=== PATIENT | female | born 2000 | race Caucasian/White ===

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

== ENCOUNTER → 2018-10-08 | Outpatient (REF) | payer OTHER ==
[2018-10-08 10:52] LABS: HEMATOCRIT 43.3 % (36.0-47.0); HEMOGLOBIN 14.7 g/dl (12.0-15.5); MEAN CORPUSCULAR HEMOGLOBIN 31.8 pg (27.0-33.0); MEAN CORPUSCULAR HGB CONC 33.9 g/dl (32.0-36.5); MEAN CORPUSCULAR VOLUME 93.7 fl (80.0-96.0); PLATELET COUNT, AUTOMATED 339 10^3/uL (150-450); RED BLOOD COUNT 4.62 10^6/uL (4.00-5.40); RED CELL DISTRIBUTION WIDTH 11.7 % (11.5-14.5); WHITE BLOOD COUNT 6.2 10^3/uL (4.0-10.0)
[2018-10-08 11:03] LABS: ALBUMIN 3.7 GM/DL (3.2-5.2); ALBUMIN/GLOBULIN RATIO 0.84 (1.00-1.93); ALKALINE PHOSPHATASE 64 U/L (45-117); ALT/SGPT 19 U/L (12-78); ANION GAP 11 MEQ/L (8-16); AST/SGOT 9 U/L (7-37); BILIRUBIN,TOTAL 0.4 MG/DL (0.2-1.0); BLOOD UREA NITROGEN 13 MG/DL (7-18); CALCIUM LEVEL 9.4 MG/DL (8.5-10.1); CARBON DIOXIDE LEVEL 26 MEQ/L (21-32); CHLORIDE LEVEL 106 MEQ/L (98-107); CHOLESTEROL LEVEL 235 MG/DL (<200); CHOLESTEROL RISK RATIO 4.795 (<5); CREATININE FOR GFR 0.71 MG/DL (0.55-1.30); FREE T4 1.08 NG/DL (0.78-1.33); GLUCOSE, FASTING 86 MG/DL (70-100); HDL CHOLESTEROL 49 MG/DL (>40); LDL CHOLESTEROL 154 MG/DL (<100); NON-HDL-C 186 MG/DL; POTASSIUM SERUM 4.1 MEQ/L (3.5-5.1); SODIUM LEVEL 143 MEQ/L (136-145); TOTAL PROTEIN 8.1 GM/DL (6.4-8.2); TRIGLYCERIDES LEVEL 160 MG/DL (<150)
[2018-10-08 11:04] LABS: TOTAL 25(OH) VITAMIN D 26.7 NG/ML (30.0-100.0)
== END ==
LOC: M SFHCPLAZ 08:25
DX: E66.09 Other obesity due to excess calories (principal); L65.9 Nonscarring hair loss, unspecified

== ENCOUNTER → 2018-12-13 | Outpatient (CLI) | payer OTHER ==
[2018-12-13 12:55] LABS: FREE T4 0.96 NG/DL (0.78-1.33); THYROID STIMULATING HORMONE 2.31 uIU/ML (0.463-3.98)
== END ==
LOC: M WUC 08:55
PROVIDERS: ATTEND Nurse Practitioner Family
DX: E03.9 Hypothyroidism, unspecified (principal)

== ENCOUNTER → 2019-02-07 | Outpatient (CLI) | payer OTHER ==
[2019-02-07 13:04] LABS: FREE T4 1.14 NG/DL (0.76-1.46); THYROID STIMULATING HORMONE 2.12 uIU/ML (0.358-3.740)
== END ==
LOC: M WUC 09:46
PROVIDERS: ATTEND Nurse Practitioner Family
DX: E03.9 Hypothyroidism, unspecified (principal)

== ENCOUNTER → 2019-04-11 | Outpatient (REF) | payer OTHER ==
[2019-04-11 12:40] LABS: FREE T4 1.1 NG/DL (0.76-1.46); THYROID STIMULATING HORMONE 1.86 uIU/ML (0.358-3.740)
== END ==
LOC: M SFHCPLAZ 09:51
PROVIDERS: ATTEND Family Medicine
DX: E03.9 Hypothyroidism, unspecified (principal)
CPT/HCPCS: 36415; 84439; 84443; G0463

== ENCOUNTER → 2019-12-10 | Outpatient (CLI) | payer OTHER ==
[2019-12-10 13:17] LABS: FREE T4 1.06 NG/DL (0.76-1.46); THYROID STIMULATING HORMONE 2.06 uIU/ML (0.358-3.740)
== END ==
LOC: M WUC 08:27
PROVIDERS: ATTEND Nurse Practitioner Family
DX: E03.9 Hypothyroidism, unspecified (principal); E55.9 Vitamin D deficiency, unspecified

== ENCOUNTER → 2020-10-17 | Outpatient (REF) | payer OTHER | LOC: M SFHCPLAZ 14:27 | PROVIDERS: ATTEND Nurse Practitioner Family | DX: Z53.9 Procedure and treatment not carried out, unspecified reason (principal); E03.9 Hypothyroidism, unspecified; E55.9 Vitamin D deficiency, unspecified ==

== ENCOUNTER → 2020-10-17 | Outpatient (CLI) | payer OTHER ==
[2020-10-17 16:52] LABS: FREE T4 1.11 NG/DL (0.76-1.46); THYROID STIMULATING HORMONE 2.03 uIU/ML (0.358-3.740)
[2020-10-17 16:53] LABS: TOTAL 25(OH) VITAMIN D 18.5 NG/ML (30.0-100.0)
== END ==
LOC: M WUC 14:26
PROVIDERS: ATTEND Nurse Practitioner Family
DX: E03.9 Hypothyroidism, unspecified (principal); E55.9 Vitamin D deficiency, unspecified

== ENCOUNTER → 2020-12-01 | Outpatient (CLI) | payer SELFPAY | LOC: M LABSMTC 08:10 | PROVIDERS: ATTEND Pediatrics | DX: Z20.822 Contact with and (suspected) exposure to COVID-19 (principal) ==

== ENCOUNTER → 2020-12-11 | Outpatient (CLI) | payer SELFPAY | LOC: M LABSMTC 14:12 | PROVIDERS: ATTEND Pediatrics | DX: Z20.822 Contact with and (suspected) exposure to COVID-19 (principal) ==

== ENCOUNTER 2021-08-03 22:30 | Emergency (ER) | payer OTHER, SELFPAY ==
[~2021-08-03] VITALS: Ht 170.2 cm; Wt 102.8 kg
[2021-08-03 22:31] VITALS: BP 146/82
[2021-08-03] MEDS ORDERED: LEVO25TA5 PO (22:39)
[2021-08-03] MEDS ORDERED: FLUORESCEIN OPHTH 1 MG STRIP OS ONE (22:55)
[2021-08-03] MEDS ORDERED: TETRACAINE 0.5% OPHTH SOLN 4ML OS ONE (22:55)
== END 2021-08-03 23:42 | disposition home or self-care (01) ==
LOC: M ED 22:30
DX: S00.252A Superficial foreign body of left eyelid and periocular area, initial encounter (principal); X58.XXXA Exposure to other specified factors, initial encounter; Y92.89 Other specified places as the place of occurrence of the external cause; Z88.0 Allergy status to penicillin

== ENCOUNTER → 2021-10-30 | Outpatient (REF) ==
[~2021-10-30] MED LIST: LEVO25TA5 PO
== END ==
LOC: M LABSMTC 10:22
PROVIDERS: ATTEND Pediatrics
DX: Z20.822 Contact with and (suspected) exposure to COVID-19 (principal)

== ENCOUNTER → 2022-02-20 | Outpatient (CLI) | payer BC ==
[2022-02-20 15:40] LABS: BASO % 0.3 % (0.0-1.0); EOS # 0.1 10^3/uL (0.0-0.5); HEMATOCRIT 38.6 % (36.0-47.0); HEMOGLOBIN 13.3 g/dl (12.0-15.5); LYMPH # 2.5 10^3/uL (1.5-5.0); MEAN CORPUSCULAR HEMOGLOBIN 31.7 pg (27.0-33.0); MEAN CORPUSCULAR HGB CONC 34.5 g/dl (32.0-36.5); MEAN CORPUSCULAR VOLUME 92.1 fl (80.0-96.0); MONO # 0.5 10^3/uL (0.0-0.8); MONO % 5.2 % (2.0-8.0); NEUTROPHILS # 6.7 10^3/uL (1.5-8.5); NEUTROPHILS % 68.1 % (36.0-66.0); PLATELET COUNT, AUTOMATED 348 10^3/uL (150-450); RED BLOOD COUNT 4.19 10^6/uL (4.00-5.40); WHITE BLOOD COUNT 9.8 10^3/uL (4.0-10.0)
[2022-02-20 16:48] LABS: ALT/SGPT 24 U/L (12-78); BILIRUBIN,TOTAL 0.8 MG/DL (0.2-1.0); BLOOD UREA NITROGEN 8 MG/DL (7-18); CALCIUM LEVEL 9.2 MG/DL (8.5-10.1); CARBON DIOXIDE LEVEL 25 MEQ/L (21-32); CHLORIDE LEVEL 106 MEQ/L (98-107); CHOLESTEROL LEVEL 190 MG/DL (<200); CHOLESTEROL RISK RATIO 5.277 (<5); CREATININE FOR GFR 0.62 MG/DL (0.55-1.30); FREE T4 1.13 NG/DL (0.76-1.46); GLOMERULAR FILTRATION RATE > 60.0 (>60); GLUCOSE, FASTING 71 MG/DL (70-100); HDL CHOLESTEROL 36 MG/DL (>40); LDL CHOLESTEROL 130 MG/DL (<100); NON-HDL-C 154 MG/DL; POTASSIUM SERUM 3.8 MEQ/L (3.5-5.1); PTH INTACT 42.8 PG/ML (18.5-88.0); SODIUM LEVEL 139 MEQ/L (136-145); TOTAL PROTEIN 7.9 GM/DL (6.4-8.2); TRIGLYCERIDES LEVEL 121 MG/DL (<150)
== END ==
LOC: M PLALAB 14:11
PROVIDERS: ATTEND Family Medicine
DX: E55.9 Vitamin D deficiency, unspecified (principal); O16.1 Unspecified maternal hypertension, first trimester; E03.9 Hypothyroidism, unspecified; E78.2 Mixed hyperlipidemia

== ENCOUNTER → 2022-04-16 | Outpatient (CLI) | payer BC ==
[2022-04-16 14:02] LABS: CALCIUM LEVEL 9.5 MG/DL (8.5-10.1); FREE T4 0.9 NG/DL (0.76-1.46); THYROID STIMULATING HORMONE 1.91 uIU/ML (0.358-3.740)
[2022-04-16 14:05] LABS: PTH INTACT 44.4 PG/ML (18.5-88.0); TOTAL 25(OH) VITAMIN D 21.7 NG/ML (30.0-100.0)
== END ==
LOC: M PLALAB 09:41
PROVIDERS: ATTEND Physician Assistant Medical
DX: E03.9 Hypothyroidism, unspecified (principal); E55.9 Vitamin D deficiency, unspecified

== ENCOUNTER 2022-11-02 16:50 | Emergency (ER) | payer BC ==
[~2022-11-02] VITALS: Ht 167.6 cm; Wt 69.7 kg
[2022-11-02 20:24] LABS: BASO % 0.2 % (0.0-1.0); EOS # 0.1 10^3/uL (0.0-0.5); HEMATOCRIT 40.2 % (36.0-47.0); HEMOGLOBIN 13.6 g/dl (12.0-15.5); LYMPH # 3.3 10^3/uL (1.5-5.0); LYMPH % 37.2 % (24.0-44.0); MEAN CORPUSCULAR HEMOGLOBIN 30.5 pg (27.0-33.0); MEAN CORPUSCULAR HGB CONC 33.8 g/dl (32.0-36.5); MEAN CORPUSCULAR VOLUME 90.1 fl (80.0-96.0); MONO # 0.4 10^3/uL (0.0-0.8); MONO % 4.7 % (2.0-8.0); NEUTROPHILS % 56.7 % (36.0-66.0); PLATELET COUNT, AUTOMATED 394 10^3/uL (150-450); RED BLOOD COUNT 4.46 10^6/uL (4.00-5.40); WHITE BLOOD COUNT 8.8 10^3/uL (4.0-10.0)
[2022-11-02 20:36] LABS: INR 0.96
[2022-11-02 20:37] LABS: PARTIAL THROMBOPLASTIN TIME 33.9 SECONDS (24.8-34.2)
[2022-11-02 20:52] LABS: LIPASE 29 U/L (12-53)
[2022-11-02 20:55] LABS: ALBUMIN 4.3 G/DL (3.2-5.2); ALKALINE PHOSPHATASE 74 U/L (46-116); ALT/SGPT 14 U/L (7.0-40); AST/SGOT 14 U/L (<34); BILIRUBIN,DIRECT 0.2 MG/DL (<0.4); BILIRUBIN,TOTAL 0.6 MG/DL (0.3-1.2); BLOOD UREA NITROGEN 10 MG/DL (9-23); CALCIUM LEVEL 9.6 MG/DL (8.5-10.1); CARBON DIOXIDE LEVEL 23 MMOL/L (20-31); CHLORIDE LEVEL 103 MMOL/L (98-107); CREATININE FOR GFR 0.52 MG/DL (0.55-1.30); GLOMERULAR FILTRATION RATE > 60.0 (>60); GLUCOSE, FASTING 88 MG/DL (60-100); POTASSIUM SERUM 3.9 MMOL/L (3.5-5.1); SODIUM LEVEL 138 MMOL/L (136-145); TOTAL PROTEIN 8.4 G/DL (5.7-8.2)
[2022-11-02 23:35] LABS: HCG, SERUM QUALITATIVE NEGATIVE (NEGATIVE)
[2022-11-03] MEDS ORDERED: IBUP-1022 PO (00:05)
[2022-11-03 00:46] LABS: GC DNA AMPLIFICATION NEGATIVE (NEGATIVE)
[2022-11-03 01:03] VITALS: BP 160/110
== END 2022-11-03 01:04 | disposition home or self-care (01) ==
LOC: M ED 16:50
DX: R10.2 Pelvic and perineal pain (principal); T83.32XA Displacement of intrauterine contraceptive device, initial encounter; Y76.2 Prosthetic and other implants, materials and accessory obstetric and gynecological devices associated with adverse incidents; E03.9 Hypothyroidism, unspecified; Z88.0 Allergy status to penicillin; Z79.890 Hormone replacement therapy

== ENCOUNTER → 2022-11-12 | Outpatient (REF) | payer BC ==
[~2022-11-12] MED LIST changes: +IBUP-1022 PO
== END ==
LOC: M SFHCPLAZ 20:47
PROVIDERS: ATTEND Physician Assistant
DX: R19.7 Diarrhea, unspecified (principal)

== ENCOUNTER → 2022-11-19 | Outpatient (CLI) | payer BC | LOC: M WHC 14:05 | PROVIDERS: ATTEND Advanced Practice Midwife | DX: Z30.430 Encounter for insertion of intrauterine contraceptive device (principal) ==

== ENCOUNTER → 2022-12-02 | Outpatient (CLI) | payer BC ==
[~2022-12-02] MED LIST changes: +GASTROGRAFIN SOLUTION 30ML As Ordered ONE; +ISOVUE-370 76% 100ML VIAL As Ordered ONE
== END ==
LOC: M RAD 09:06
PROVIDERS: ATTEND Physician Assistant
DX: R19.7 Diarrhea, unspecified (principal); R14.0 Abdominal distension (gaseous); R10.31 Right lower quadrant pain; Z97.5 Presence of (intrauterine) contraceptive device

== ENCOUNTER → 2023-02-24 | Outpatient (CLI) | payer BC ==
[~2023-02-24] MED LIST changes: -GASTROGRAFIN SOLUTION 30ML As Ordered ONE; -ISOVUE-370 76% 100ML VIAL As Ordered ONE
[2023-02-24 18:21] LABS: HEMOGLOBIN A1c 4.8 % (4.0-6.0)
[2023-02-24 20:47] LABS: FREE T4 1.04 NG/DL (0.89-1.76); PROLACTIN 8.47 NG/ML; THYROID STIMULATING HORMONE 2.631 uIU/ML (0.55-4.78)
[2023-02-24 20:50] LABS: FOLLICLE STIMULATING HORMONE 3.2 mIU/ML; LUTEINIZING HORMONE 2.3 mIU/ML
== END ==
LOC: M PLALAB 11:00
PROVIDERS: ATTEND Advanced Practice Midwife
DX: N91.5 Oligomenorrhea, unspecified (principal)

== ENCOUNTER → 2023-12-26 | Outpatient (CLI) | payer BC ==
[2023-12-26 09:30] LABS: BASO % 0.3 % (0.0-1.0); EOS # 0.1 10^3/uL (0.0-0.5); EOS % 1.3 % (0.0-3.0); HEMATOCRIT 41.4 % (36.0-47.0); LYMPH # 2.3 10^3/uL (1.5-5.0); LYMPH % 31.9 % (24.0-44.0); MEAN CORPUSCULAR HEMOGLOBIN 30.4 pg (27.0-33.0); MEAN CORPUSCULAR HGB CONC 33.8 g/dl (32.0-36.5); MONO # 0.4 10^3/uL (0.0-0.8); MONO % 5.4 % (2.0-8.0); NEUTROPHILS # 4.3 10^3/uL (1.5-8.5); NEUTROPHILS % 60.7 % (36.0-66.0); PLATELET COUNT, AUTOMATED 391 10^3/uL (150-450); WHITE BLOOD COUNT 7.1 10^3/uL (4.0-10.0)
[2023-12-26 09:57] LABS: ALBUMIN 3.4 G/DL (3.2-5.2); ALKALINE PHOSPHATASE 61 U/L (46-116); ALT/SGPT 11 U/L (7.0-40); AST/SGOT 12 U/L (<34); BILIRUBIN,DIRECT < 0.1 MG/DL (<0.4); BILIRUBIN,TOTAL 0.2 MG/DL (0.3-1.2); BLOOD UREA NITROGEN 9 MG/DL (9-23); CALCIUM LEVEL 9.2 MG/DL (8.5-10.1); CARBON DIOXIDE LEVEL 24 MMOL/L (20-31); CHLORIDE LEVEL 107 MMOL/L (98-107); CHOLESTEROL LEVEL 230 MG/DL (<200); CHOLESTEROL RISK RATIO 4.37 (<5); GLOMERULAR FILTRATION RATE > 60.0 (>60); GLUCOSE, FASTING 94 MG/DL (60-100); HDL CHOLESTEROL 52.6 MG/DL (>40); LDL CHOLESTEROL 153.8 MG/DL (<100); NON-HDL-C 177.4 MG/DL; PHOSPHORUS LEVEL 3.7 MG/DL (2.5-4.9); POTASSIUM SERUM 4.6 MMOL/L (3.5-5.1); SODIUM LEVEL 140 MMOL/L (136-145); THYROID STIMULATING HORMONE 3.362 uIU/ML (0.55-4.78); TOTAL PROTEIN 7.4 G/DL (5.7-8.2); TRIGLYCERIDES LEVEL 118 MG/DL (<150)
[2023-12-26 09:58] LABS: FREE T4 1.15 NG/DL (0.89-1.76)
[2023-12-26 09:59] LABS: HEMOGLOBIN A1c 4.9 % (4.0-6.0)
== END ==
LOC: M LAB 08:33
PROVIDERS: ATTEND Nurse Practitioner Family
DX: E66.8 Other obesity (principal)

== ENCOUNTER → 2024-05-15 | Outpatient (REF) | payer BC | LOC: M LAB REF 17:12 | PROVIDERS: ATTEND Physician Assistant Medical | DX: B34.9 Viral infection, unspecified (principal) ==

== ENCOUNTER → 2024-07-31 | Outpatient (CLI) | payer BC ==
[2024-07-31 10:11] LABS: BASO % 0.6 % (0.0-1.0); EOS # 0.2 10^3/uL (0.0-0.5); EOS % 2.3 % (0.0-3.0); HEMATOCRIT 38.8 % (36.0-47.0); HEMOGLOBIN 13.2 g/dl (12.0-15.5); LYMPH # 2.3 10^3/uL (1.5-5.0); MEAN CORPUSCULAR HEMOGLOBIN 31.9 pg (27.0-33.0); MEAN CORPUSCULAR VOLUME 93.7 fl (80.0-96.0); MONO # 0.4 10^3/uL (0.0-0.8); MONO % 6.3 % (2.0-8.0); NEUTROPHILS # 3.8 10^3/uL (1.5-8.5); NEUTROPHILS % 56.5 % (36.0-66.0); PLATELET COUNT, AUTOMATED 371 10^3/uL (150-450); RED BLOOD COUNT 4.14 10^6/uL (4.00-5.40); WHITE BLOOD COUNT 6.7 10^3/uL (4.0-10.0)
[2024-07-31 10:41] LABS: THYROID STIMULATING HORMONE 2.172 uIU/ML (0.55-4.78); TOTAL 25(OH) VITAMIN D 23.7 NG/ML (20.0-100.0)
[2024-07-31 10:42] LABS: ALBUMIN 3.6 G/DL (3.2-5.2); ALKALINE PHOSPHATASE 57 U/L (46-116); ALT/SGPT 12 U/L (7.0-40); AST/SGOT < 8 U/L (<34); BILIRUBIN,TOTAL 0.5 MG/DL (0.3-1.2); BLOOD UREA NITROGEN 11 MG/DL (9-23); CALCIUM LEVEL 9.8 MG/DL (8.5-10.1); CARBON DIOXIDE LEVEL 24 MMOL/L (20-31); CHLORIDE LEVEL 109 MMOL/L (98-107); CHOLESTEROL LEVEL 214 MG/DL (<200); GLOMERULAR FILTRATION RATE > 60.0 (>60); GLUCOSE, FASTING 85 MG/DL (60-100); HDL CHOLESTEROL 44.5 MG/DL (>40); LDL CHOLESTEROL 141.5 MG/DL (<100); NON-HDL-C 169.5 MG/DL; POTASSIUM SERUM 4.3 MMOL/L (3.5-5.1); SODIUM LEVEL 139 MMOL/L (136-145); TOTAL PROTEIN 7.7 G/DL (5.7-8.2); TRIGLYCERIDES LEVEL 140 MG/DL (<150)
[2024-07-31 10:43] LABS: FREE T4 1.13 NG/DL (0.89-1.76)
[2024-07-31 13:39] LABS: PTH INTACT 41.9 PG/ML (18.5-88.0)
== END ==
LOC: M LAB 08:48
PROVIDERS: ATTEND Physician Assistant Medical
DX: E55.9 Vitamin D deficiency, unspecified (principal); E03.9 Hypothyroidism, unspecified; E78.2 Mixed hyperlipidemia; R03.0 Elevated blood-pressure reading, without diagnosis of hypertension

== ENCOUNTER → 2024-10-24 | Outpatient (CLI) | payer BC ==
[2024-10-24 17:40] LABS: BASO % 0.3 % (0.0-1.0); EOS # 0.2 10^3/uL (0.0-0.5); EOS % 1.7 % (0.0-3.0); HEMATOCRIT 41.4 % (36.0-47.0); HEMOGLOBIN 13.8 g/dl (12.0-15.5); LYMPH # 3.4 10^3/uL (1.5-5.0); MEAN CORPUSCULAR HEMOGLOBIN 31.1 pg (27.0-33.0); MEAN CORPUSCULAR HGB CONC 33.3 g/dl (32.0-36.5); MEAN CORPUSCULAR VOLUME 93.2 fl (80.0-96.0); MONO # 0.6 10^3/uL (0.0-0.8); MONO % 5.9 % (2.0-8.0); NEUTROPHILS # 5.7 10^3/uL (1.5-8.5); NEUTROPHILS % 57.9 % (36.0-66.0); PLATELET COUNT, AUTOMATED 450 10^3/uL (150-450); RED BLOOD COUNT 4.44 10^6/uL (4.00-5.40); WHITE BLOOD COUNT 9.9 10^3/uL (4.0-10.0)
[2024-10-24 17:49] LABS: LIPASE 32 U/L (12-53)
[2024-10-24 17:51] LABS: ALBUMIN 3.7 G/DL (3.2-5.2); ALKALINE PHOSPHATASE 58 U/L (35-104); ALT/SGPT < 9 U/L (7.0-40); AST/SGOT < 8 U/L (<34); BILIRUBIN,TOTAL 0.6 MG/DL (0.3-1.2); BLOOD UREA NITROGEN 10 MG/DL (9-23); CALCIUM LEVEL 10.2 MG/DL (8.5-10.1); CARBON DIOXIDE LEVEL 26 MMOL/L (20-31); CHLORIDE LEVEL 103 MMOL/L (98-107); CREATININE FOR GFR 0.67 MG/DL (0.55-1.30); GLOMERULAR FILTRATION RATE > 60.0 (>60); GLUCOSE, FASTING 82 MG/DL (60-100); POTASSIUM SERUM 4.1 MMOL/L (3.5-5.1); SODIUM LEVEL 136 MMOL/L (136-145); TOTAL PROTEIN 8.3 G/DL (5.7-8.2)
== END ==
LOC: M PLALAB 16:10
PROVIDERS: ATTEND Nurse Practitioner Family
DX: R10.84 Generalized abdominal pain (principal)

== ENCOUNTER → 2024-10-28 | Outpatient (CLI) | payer BC | LOC: M RAD 09:19 | PROVIDERS: ATTEND Nurse Practitioner Family | DX: R10.84 Generalized abdominal pain (principal) ==

== ENCOUNTER → 2025-01-25 | Outpatient (CLI) | payer BC ==
[2025-01-25 09:17] LABS: BASO % 0.8 % (0.0-1.0); EOS # 0.2 10^3/uL (0.0-0.5); HEMATOCRIT 42.2 % (36.0-47.0); HEMOGLOBIN 14.4 g/dl (12.0-15.5); LYMPH # 1.9 10^3/uL (1.5-5.0); LYMPH % 37.9 % (24.0-44.0); MEAN CORPUSCULAR HEMOGLOBIN 31.5 pg (27.0-33.0); MEAN CORPUSCULAR HGB CONC 34.1 g/dl (32.0-36.5); MEAN CORPUSCULAR VOLUME 92.3 fl (80.0-96.0); MONO # 0.3 10^3/uL (0.0-0.8); MONO % 6.2 % (2.0-8.0); NEUTROPHILS # 2.6 10^3/uL (1.5-8.5); NEUTROPHILS % 51.9 % (36.0-66.0); PLATELET COUNT, AUTOMATED 352 10^3/uL (150-450); RED BLOOD COUNT 4.57 10^6/uL (4.00-5.40)
[2025-01-25 09:52] LABS: ALBUMIN 3.8 G/DL (3.2-5.2); ALKALINE PHOSPHATASE 61 U/L (35-104); ALT/SGPT 16 U/L (7.0-40); AST/SGOT 10 U/L (<34); BILIRUBIN,TOTAL 0.8 MG/DL (0.3-1.2); BLOOD UREA NITROGEN 11 MG/DL (9-23); CALCIUM LEVEL 9.6 MG/DL (8.5-10.1); CARBON DIOXIDE LEVEL 27 MMOL/L (20-31); CHLORIDE LEVEL 102 MMOL/L (98-107); CHOLESTEROL LEVEL 222 MG/DL (<200); CHOLESTEROL RISK RATIO 5.08 (<5); CREATININE FOR GFR 0.69 MG/DL (0.55-1.30); GLOMERULAR FILTRATION RATE > 60.0 (>60); GLUCOSE, FASTING 97 MG/DL (60-100); HDL CHOLESTEROL 43.7 MG/DL (>40); LDL CHOLESTEROL 150.3 MG/DL (<100); NON-HDL-C 178.3 MG/DL; POTASSIUM SERUM 4.5 MMOL/L (3.5-5.1); SODIUM LEVEL 141 MMOL/L (136-145); TOTAL PROTEIN 8.1 G/DL (5.7-8.2); TRIGLYCERIDES LEVEL 140 MG/DL (<150)
[2025-01-25 09:53] LABS: THYROID STIMULATING HORMONE 1.845 uIU/ML (0.55-4.78)
== END ==
LOC: M LAB 08:27
PROVIDERS: ATTEND Physician Assistant Medical
DX: I10 Essential (primary) hypertension (principal); E78.2 Mixed hyperlipidemia; E03.9 Hypothyroidism, unspecified

== ENCOUNTER → 2025-03-15 | Outpatient (REF) | payer OTHER, BC | LOC: M SFHCPLAZ 09:46 | PROVIDERS: ATTEND Physician Assistant Medical | DX: J06.9 Acute upper respiratory infection, unspecified (principal) ==

== ENCOUNTER → 2025-03-30 | Outpatient (REF) | payer OTHER, BC | LOC: M SFHCWAGY 18:00 | PROVIDERS: ATTEND Advanced Practice Midwife | DX: Z12.4 Encounter for screening for malignant neoplasm of cervix (principal) ==

== ENCOUNTER → 2025-08-12 | Outpatient (CLI) | payer BC ==
[~2025-08-12] MED LIST changes: -IBUP-1022 PO; +IBUP600T42 PO
[2025-08-12 09:32] LABS: FREE T4 1.21 NG/DL (0.89-1.76)
== END ==
LOC: M LAB 08:18
PROVIDERS: ATTEND Physician Assistant Medical
DX: E03.9 Hypothyroidism, unspecified (principal)